=== PATIENT | male | born 1980 | race Caucasian/White ===

== ENCOUNTER 2022-01-23 08:36 | Emergency (ER) | payer SELFPAY ==
[~2022-01-23] VITALS: Ht 193 cm; Wt 79.4 kg
[2022-01-23] MEDS ORDERED: IBU600 MG PO (08:58)
== END 2022-01-23 10:09 | disposition home or self-care (01) ==
LOC: ED 08:36
DX: S86.911A Strain of unspecified muscle(s) and tendon(s) at lower leg level, right leg, initial encounter (principal); X50.9XXA Other and unspecified overexertion or strenuous movements or postures, initial encounter
CPT/HCPCS: 73560; 99283-25